=== PATIENT | male | born 1965 | race Two or more races ===

== ENCOUNTER → 2023-01-29 | Emergency (ER) | payer OTHER ==
[~2023-01-29] VITALS: Ht 152.4 cm; Wt 90.7 kg
[~2023-01-29] MED LIST: AUGMENTIN125 MG/5 M; BENICAR5 MG; EPLERENONE25 MG PO; KAPVAY0.1 MG; NIFEDIPINE20 MG; ZIAC 2.5-6.251 EACH
[2023-01-29 13:54] LABS: HEMATOCRIT 39.2 % (39.0-48.0); HEMOGLOBIN 13.4 g/dL (13-16.00); MEAN CELL VOLUME 90.3 fL (80.0-100.00); MEAN CORPUSCULAR HEMOGLOBIN 30.9 pg (27.00-32.0); MEAN CORPUSCULAR HGB CONC 34.3 g/dl (32.0-36.0); PLATELET COUNT 255 K/uL (150-450); RED BLOOD COUNT 4.35 M/uL (4.00-6.00); RED CELL DISTRIBUTION WIDTH 14.5 % (11.5-14.5)
[2023-01-29 14:22] LABS: INR 0.96
[2023-01-29 15:22] LABS: ALBUMIN 3.3 gm/dL (3.4-5.0); BILIRUBIN TOTAL 0.32 mg/dL (0.3-1.2); CALCIUM 8.3 mg/dL (8.5-10.1); CKMB 1.6 NG/ML (0.5-3.6); CREATININE SERUM 1.19 mg/dL (0.70-1.30); GFR 63.01; GLOBULINA 3.6 G/DL (2.4-3.5); POTASSIUM 3.8 mEq/L (3.5-5.1); TOTAL PROTEIN 6.9 gm/dL (6.4-8.2)
[2023-01-29 15:29] LABS: PROTHROMBIN TIME 10.1 SECONDS (9.0-11.5)
== END | disposition left against medical advice (07) ==
LOC: ER 13:34
PROVIDERS: Emergency Medicine
DX: R55 Syncope and collapse (principal); I10 Essential (primary) hypertension; F41.9 Anxiety disorder, unspecified
CPT/HCPCS: 36415; 93005; 93041; 96365; 99284; J3490